=== PATIENT | female | born 2000 | race Caucasian/White ===

== ENCOUNTER 2021-05-02 11:38 | Outpatient (CLI) | payer OTHER, SELFPAY ==
--- NOTE | ~2021-05-02 | MR_ITS ---
EXAMINATION: MR brain/brain stem wo/w con DATE: 05/02/2021 13:09 INDICATION: Papilledema. TECHNIQUE: Magnetic resonance imaging (MRI) of the brain and brainstem was performed without and with 20 cc MultiHance intravenous contrast. Sequences included sagittal and axial T1-weighted SE, axial d iffusion-weighted FS SE, axial T2*-weighted GRE, axial T2-weighted FLAIR Propeller, and axial T2-weig hted Propeller. Apparent diffusion coefficient (ADC) maps were created. COMPARISON: None. FINDINGS: No evidence for acute infarction or intracranial hemorrhage. Cerebellar tonsils extend belo w the foramen magnum 6 mm. Normal olmos-white differentiation. Normal brain parenchymal volume. No ernesto triculomegaly or midline shift. There is a small mucous retention cyst of the left maxillary sinus. N o abnormal contrast enhancement. Flow voids in the major intracerebral arteries are normal. Orbits ar e symmetric without disconjugate gaze. IMPRESSION: 1. No acute intracranial abnormality. 2: Cerebellar tonsils extend below the foramen magnum 6 mm, consistent with Chiari type I malformatio n. Reviewed, dictated and finalized at location B. IMPRESSION: 1. No acute intracranial abnormality. 2: Cerebellar tonsils extend below the foramen magnum 6 mm, consistent with Chi marci type I malformation.
== END 2021-05-02 11:39 | disposition home or self-care (01) ==
LOC: ANHIMG 11:41
PROVIDERS: PCP Nurse Practitioner Family; Visit Provider Family Medicine
DX: H47.10 Unspecified papilledema (principal); R51.9 Headache, unspecified
CPT/HCPCS: 70553; A9577

== ENCOUNTER 2021-05-18 08:49 | Outpatient (CLI) | payer OTHER, SELFPAY ==
--- NOTE | 2021-06-05 09:10 | WPDHOMESLEEP ---
Sleep Study - Home Unattended Date of Study: 05/18/21 Ordering Provider: Beata Aguilar NP Interpreting Provider: Yesika Angel MD Home Sleep Study Type: Watch PAT Height: 1.65 m Weight: 104.3 kg Body Mass Index: 38.2 Neck Circumference (inches): 14.5 Tucker: 12 Reason for Sleep Study Poor memory, irritability, excessive daytime sleepiness Sleep History Natalia Serrano is a 21 year old female with difficulty falling asleep, excessive daytime sleepiness, and difficulty waking. She uses melatonin which helps her to initiate sleep. She does not awaken from sleep feeling short of breath. She rarely awakens at night with heartburn, belching or coughing. She does not know if she snores but nobody complains that she snores loudly. She rarely has trouble sleeping with a cold. She does not wake up gasping for breath at night. She does not have breathing problems at night observed by others. She frequently sweats excessively at night. She does not notice her heart pounding or beating irregularly night. She constantly falls asleep during the day and this occurs involuntarily. She never falls asleep while driving. She does not have loss of muscle tone was strong emotion. She occasionally has daytime difficulties due to excessive sleepiness. She does not feel paralyzed on waking or falling asleep. She does not have vivid dreamlike scenes upon awakening or falling asleep. She does not feel afraid to go to sleep. She rarely has nightmares. She occasionally remembers her dreams. She constantly has racing thoughts. She frequently feels sad and depressed. She constantly has anxiety. She does not have muscular tension or notices parts of her body jerking. She occasionally kicks at night. She does not have crawling or aching feelings in her legs. She rarely has any kind of leg pain at night. She occasionally has morning jaw pain. She occasionally grinds her teeth during sleep. She is not bothered by pain during the day and is not awakened by pain at night. She rarely wakes up feeling stiff the morning. She never wakes up with sore or achy muscles. She rarely wakes up with pain in the neck and spine. She has headaches, depression, memory problems, concentration difficulties,. She take sedatives which are prescribed and melatonin which is [id number]. Normal bedtime is Twelve midnight to 1:00 a.m. falling asleep within 30 minutes if she uses melatonin, longer if she does not use melatonin. She does not wake up during the night. She wakes in the morning between 8:00 a.m. and noon. On the weekends she sleeps later, goes to bed between midnight and 1:00 a.m. and wakes between 10:00 a.m. and 12 noon. She gets at least 8 hours of sleep at night, usually closer to 10 hours of sleep. she takes naps in the afternoon or evening. Sometimes a short nap may be refreshing. She is usually drowsy in the morning for an hour or longer. She feels better in afternoon compared to the morning. Habits: Never smoked tobacco. Caffeine 1 coffee but not daily. No alcohol or recreational drugs. 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
[2021-06-05 09:17] VITALS: BMI 38.2
== END 2021-05-23 12:52 | disposition home or self-care (01) ==
LOC: ANHCSM 08:51
PROVIDERS: PCP Nurse Practitioner Family; Visit Provider Nurse Practitioner Family
DX: G47.10 Hypersomnia, unspecified (principal)
CPT/HCPCS: 95800

== ENCOUNTER 2025-04-13 18:07 | Emergency (ER) | payer OTHER, SELFPAY ==
--- OUTSIDE RECORDS SUMMARY | 2025-04-13 18:10 | XMS_ITS | Clinical Summary ---
Author Organization [facility] Address [address] [place] [address] Care Team Providers Care Anesthesia Director Name Role Phone Lashonda Bennett OD Unavailable [phone] Beata Aguilar NP Unavailable [phone] Jessica Adler MD Unavailable [phone] Anna Tilley OD Unavailable [phone] Dayami Moncada DO Unavailable [phone] Cristin Thornton [facility] Primary Care Provi jacqui Allergies No known active allergies Medications melatonin 5 mg capsule TAKE DIRECTED. 7 Active Drysol 20 % external solution APPLY TO UNDERARMS NIGHTLY 4 Active azelaic acid 15 % gel APPLY TOPICALLY TO FACE IN THE MORNING [address] (CYMBALTA) 60 mg capsuleIndicati ons:Anxiety with Depression,Gene ralized Anxiety Disorder,major depressive disorder Take 1 capsule (60 mg total) by mouth daily Active famotidine (PEPCID) 20 mg tabletIndicatio ns:gastroesopha geal reflux disease Take 1 tablet (20 mg total) by mouth 2 (two) times a day 180 tablet 1 5 01/26/20 26 Active rizatriptan (MAXALT) 10 mg tabletIndicatio ns:Migraine Take 1 tablet (10 mg total) by mouth once as needed for migraine May repeat in 2 hours if unresolved. Do not exceed 30 mg in 24 hours. 27 tablet 11 5 02/24/20 26 Active Active Problems Problem Noted Date Diagnosed Date Migraine without aura and wi thout status migrainosus, not intractable 02/24/2025 Gastroesophageal reflux disease without esophagi tis 01/31/2025 Assessment & Plan (01/31/2025 8:11 PM CDT): Take famotidine 20 mg twice daily as prescribed Coccydynia 01/31/2025 Assessment & Plan (01/31/2025 8:14 PM CDT): When driving long distance road trips, take a break every 2 hours Recommend purchasing a seat cushion Take gxqz-hkg-cldsalh medications for pain as needed Avoid sitting in the same position for prolonged periods of time Try repositioning every few minutes Consider physical therapy Recommend muscle conditioning and strength training Acne vulgaris 01/31/2025 Assessment & Plan (01/31/2025 8:15 PM CDT): Managed by Dermatology Chronic and stable on azelaic acid 15% gel Morbid obesity with BMI of 40.0-44.9, adult 01/10 Assessment & Plan (01/31/2025 8:16 PM CDT): Your BMI is elevated. Try to cut back on calories. Most people should eat between 0144-8275 calories to lose weight. Goal BMI is less than 30. A healthy BMI is considered between 19-25. Decrease your carbohydrate intake to less than 150 grams per day if possible and increase protein to help with hunger. Increase activity to 30 min 4-5 days a week of moderate aerobic activity and add strength training 2 times weekly, as tolerated. Consider using [employer]heen to track diet and exercise habits daily. Consider trying Weight Watcher program to make dietary changes. Visit www.dietaryguidelines.gov, www.myplate.gov, or www.health.gov for more dietary information and tips. If you need further help with weight loss please let me know. I would be happy to help. Start with asking your insurance company what medications they provide coverage for. Check with your insurance to see if they authorize dietitian services with [email or web address] Some medications to ask about include phentermine, Qsymia, Contrave, Xenical, Wegovy, Zepbound. Annual physical exam 01/31/2025 Assessment & Plan (01/31/2025 8:17 PM CDT): Labs ordered Recommend drinking at least 64 oz of water daily Recommend at least 26g fiber daily Recommend at least 150 min of exercise weekly as tolerated Recommend taking daily multivitamin Continue eating a healthy well-balanced diet. Limit processed foods like white starches, fast food, sweets and soda. Increase your vegetable intake and limit red meat. Wear your seatbelt at all times. No texting and driving. Continue to manage your stress in a healthy manner. Follow-up 1 year for annual physical. 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 Pedro for possible IIH in the setting of a Chiari I malformation. She was initially noted to have bilateral optic edema by optometrists Dr. Anna Adam and Dr. Lashonda Bennett, which was followed by an MRI notable for a Chiari I malformation. She has already been seen by Dr. Pedro as well. She states that in March she had headaches every day and currently she has approximately 2-3 non-positional headaches weekly. She has had occasional pulsatile tinnitus but denies TVOs, diplopia, or loss of vision. She denies recent weight gain. She denies any use of doxycycline, tetracycline and minocycline along w/ use of accutane or retinol skin creams/gels. On exam, her VA is 20/20 OU w/ full color vision OU. She does not have an APD and has full motility. Her anterior slit lamp exam is generally unremarkable and her posterior exam is notable for grade 2 disc edema OD and grade 2-3 disc edema OS. Her HVF 24-2 was full other than rare nonspecific misses OS>OD, her OCT ON shows increased average RNFL thickness OS>OD, and her OCT macula shows normal mean ganglion cell complex thickness OU. 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 It appears that it would be OK for her to undergo a lumbar puncture with direct measurement of her OP as per Dr. Pedro's last note, and we will schedule for this to be completed as well. Afterwards, we will plan to initiate treatment w/ diamox. She was given handouts on both papilledema and IIH. She was also counseled on the importance of weight loss and is planning on meeting with a cardroom plastic card grader as well to better aid her efforts in weight loss. Anxiety 02/21/2017 01/31/2025 Depressed mood 01/26/2016 01/31/2025 Encounters Date Type Department Care Team Description 02/23/2025 1:30 PM CDT Office Visit [facility] General Neurology [address] 6th [place] [address] [place] [address] Colby Duran MD PhD Migraine without aura and without status migrainosus, not intractable (Primary Dx); Chiari I malformation (HCC) 01/28/2025 Results Follow-Up [facility] Medicine [address] [place] [address] [address] [place] [id number] Cristin Thornton DNP CBC with auto differential, Comprehensive metabolic panel, Hemoglobin A1c, Additional followed-up results: 5 01/25/2025 12:30 PM CDT Office Visit [facility] Medicine [address] [place] [address] [address] [place] [address] Cristin Thornton DNP Annual physical exam (Primary Dx); Encounter to establish care; Coccydynia; Chiari I malformation (HCC); Gastroesophageal reflux disease without esophagitis; SANGEETA (generalized anxiety disorder); Mild episode of recurrent major depressive disorder; Acne vulgaris; History of idiopathic intracranial hypertension; Morbid obesity with BMI of 40.0-44.9, adult (HCC); Screening for diabetes mellitus; Lipid screening; Thyroid disorder screen; Encounter for vitamin deficiency screening; Encounter for long-term (current) use of medications from Last 3 Months Immunizations Immunization Administration Dates Next Due Hep B, Unspecified 2001 Influenza, Quadrivalent, Spl it, Preservative Free, Intramuscular 10/27/2020,01/11/2020 Influenza, Unspecified 08/11/2024 Pfizer SARS-CoV-2 Monovalent Vaccination (12+ Yrs) PURPLE 03/02/2021,02/06/2021 Surgical History Surgery Date Site/Laterality Comments ADENOIDECTOMY 11/11/2007 - 11/10/2008 TYMPANOSTOMY TUBE PLACEMENT 2003,2007 LUMBAR PUNCTURE WO INJECTION , THERAPEUTIC 07/12/2021 N/A Medical History Medical History Date Comments Depression Myopia of both eyes Left nasal polyps Idiopathic intracranial hypertension 07/12/2021 Chiari I malformation (HCC) 05/02/2021 Family History Medical History Relation Name Comments Diabetes Father Hypertension Father Asthma Mother Kidney disease Mother Thyroid disease Mother Uterine cancer Other MGrandmother twin Heart disease Paternal Grandfather Hypertension Paternal Grandfather Stroke Paternal Grandfather Polycystic ovary syndrome Sister Strabismus Sister Breast cancer Neg Hx Ovarian cancer Neg Hx Relation Name Status Comments Father Mother Other MGrandmother twin Alive maternal g randmother's twin sister Paternal Grandfather Sister Social History Tobacco Use Types Packs/Day Years Used Date Smoking Tobacco: Never Smokeless Tobacco: Never Tobacco Cessation:Counseling Given: Not Answered AUDIT-C Answer Date Recorded Q1: How often do you have a drink containing alc ohol? 2-4 times a month 01/25/2025 Q2: How many drinks containi ng alcohol do you have on a typical day when you are drinking? 1 or 2 01/25/2025 Q3: How often do you have si x or more drinks on one occasion? 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 Gender Identity Not on file Sexual Orientation Not on file Obstetrics History Para Term AB IAB SAB Ectopic Multiple Livin g Live Births 0 0 0 0 0 0 0 0 0 0 0 Comments 13/0/0 Last Filed Vital Signs Vital Sign Reading Time Taken Comments Blood Pressure 102/67 02/23/2025 1:39 PM CDT Pulse 87 02/23/2025 1:39 PM CDT Temperature 36.3 C (97.3 F) 06/17/2024 4:35 PM CDT Respiratory Rate 18 01/25/2025 12:39 PM CDT Oxygen Saturation 98% 01/25/2025 12:39 PM CDT Inhaled Oxygen Concentration - - Weight 116.6 kg (257 lb) 02/23/2025 1:39 PM CDT Height 165.1 cm (5' 5) 02/23/2025 1:39 PM CDT Body Mass Index 42.77 02/23/2025 1:39 PM CDT Plan of Treatment Health Maintenance Due Date Last Done Comments Chlamydia and Gonorrhea (GC/CT) Screening 2001 Hepatitis C Screening 2001 DTaP/Tdap/Td Vaccine (1 - Tdap) 02/13/2012 Varicella Vaccines (1 of 2 - 13+ 2-dose series) 2014 HPV Vaccines (1 - 3-dose series) 02/13/2016 Covid-19 Vaccine ( - 2023- season) 2024 03/02/2021, 02/06/2021 Cervical Cancer Screening 08/03/2025 08/03/2024 Depression Screening 01/25/2026 01/25/2025, 01/16/2021, 01/16/2021, Additional history exists Regular Well Visit/Exam 18-64 01/25/2026 01/25/2025, 08/03/2024 Hepatitis B Screening Completed 2001 Influenza Vaccine Completed 08/11/2024, , 01/11/2020 Pneumococcal vaccine <65 Aged Out No longer eligible based on patient's age to complete this topic Procedures Procedure Name Priority Date/Time Associated Diagnosis Comments VITAMIN D 25 HYDROXY Routine 01/27/2025 12:30 PM CDT Encounter for vitamin deficiency screening Encounter for long-term (current) use of medications Annual physical exam THYROID FUNCTION CASCADE Routine 01/27/2025 12:30 PM CDT Thyroid disorder screen Encounter for long-term (current) use of medications Annual physical exam LIPID PANEL Routine 01/27/2025 12:30 PM CDT Lipid screening Encounter for long-term (current) use of medications Annual physical exam HEMOGLOBIN A1C Routine 01/27/2025 12:30 PM CDT Screening for diabetes mellitus Encounter for long-term (current) use of medications Annual physical exam COMPREHENSIVE METABOLIC PANEL Routine 01/27/2025 12:30 PM CDT Screening for diabetes mellitus Encounter for long-term (current) use of medications Annual physical exam CBC WITH AUTO DIFFERENTIAL Routine 01/27/2025 12:30 PM CDT Encounter for long-term (current) use of medications Annual physical exam URINE CULTURE Routine 01/27/2025 12:30 PM CDT REFLEXIVE URINE CULTURE Routine 01/27/2025 12:30 PM CDT URINALYSIS AND REFLEX TO MICROSCOPIC AND CULTURE Routine 01/27/2025 12:30 PM CDT Encounter for long-term (current) use of medications Annual physical exam PAP WITH REFLEX TO HIGH RISK HPV Routine 08/03/2024 2:57 PM CDT Well woman exam with routine gynecological exam from Last 3 Months or Most Recently Relevant to Health Maintenance Results * REFLEXIVE URINE CULTURE (01/27/2025 12:30 PM CDT) [facility]rine culture [email or web address] Comment:CULTURE INDICATED - RESULTS TO FOLLOW 01/27/2025 12:3 0 PM CDT 01/27/2025 12:31 PM CDT Narrative [facility] - 01/28/2025 9:39 PM CDT FASTING:YES FASTING: YES Cristin Thornton [facility] MICROBIOLOGY - GENERAL ORDERABLES Final Result [facility] [address] [place] [address] * Thyroid Function [place] (01/27/2025 12:30 PM CDT) Pathologist [facility] TSH 2.51 mIU/L [facility] Comment: Reference Range > or = 20 Years 0.40-4.50 Ranges First trimester 0.26-2.66 Second trimester 0.55-2.73 Third trimester 0.43-2.91 Blood 01/27/2025 12:3 0 PM CDT 01/27/2025 12:31 PM CDT Narrative [facility] - 01/28/2025 9:39 PM CDT FASTING:YES FASTING: YES Cristin Thornton [facility] BLOOD ORDERABLE S Final Result Performing Organization Address [facility] Co de Phone Number [facility] [address] [place] [address] * (ABNORMAL) Urinalysis reflex to microscopic and culture Urine, clean voided (01/27/2025 12:30 PM CDT) Color, ur YELLOW YELLOW [facility] Appearance, ur CLEAR CLEAR [facility] Specific gravity 1.028 1.001 - 1.035 [facility] pH, ur 6.5 5.0 - 8.0 [facility] Glucose, ur NEGATIVE NEGATIVE [facility] Bilirubin, ur NEGATIVE NEGATIVE [facility] Ketones, ur NEGATIVE NEGATIVE [facility] Blood, ur NEGATIVE NEGATIVE [facility] Protein, ur, quant NEGATIVE NEGATIVE [facility] Nitrites, ur NEGATIVE NEGATIVE [facility] Leukocyte esterase, ur TRACE(A) NEGATIVE [facility] WBC, ur NONE SEEN < OR = 5 /HPF [facility] RBC, ur NONE SEEN < OR = 2 /HPF [facility] Epithelial cells, squamous, ur 6-10(A) < OR = 5 /HPF [facility] Bacteria, ur, quant FEW(A) NONE SEEN /HPF [facility] Hyaline cast 0-5(A) NONE SEEN /LPF [facility] Note [facility] Comment: This urine was analyzed for the presence of WBC, RBC, bacteria, casts, and other formed elements. Only those elements seen were reported. Urine, clean voided 01/27/2025 12:30 PM CDT 01/27/2025 12:31 PM CDT Narrative [facility] - 01/28/2025 9:39 PM CDT FASTING:YES FASTING: YES Cristin Thornton [facility] MICROBIOLOGY - GENERAL ORDERABLES Final Result [facility] [address] [place] [address] * CBC with auto differential (01/27/2025 12:30 PM CDT) WBC 6.2 3.8 - 10.8 Thousand/u L [facility] RBC, POC 4.87 3.80 - 5.10 Million/uL [facility] Hgb 14.7 11.7 - 15.5 g/dL [facility] Hct 44.2 35.0 - 45.0 % [facility] MCV 90.8 80.0 - 100.0 fL [facility] MCH 30.2 27.0 - 33.0 pg [facility] MCHC 33.3 32.0 - 36.0 g/dL [facility] Comment: For adults, a slight decrease in the calculated MCHC value (in the range of 30 to 32 g/dL) is most likely not clinically significant; however, it should be interpreted with caution in correlation with other red cell parameters and the patient's clinical condition. Rdw 12.6 11.0 - 15.0 % [facility] Platelets 285 140 - 400 Thousand/u L [facility] MPV 10.7 7.5 - 12.5 fL [facility] Neutrophils, abs 3,726 1,500 - 7,800 cells/uL [facility] Lymphocytes, abs 2,139 850 - 3,900 cells/uL [facility] Monocyte abs 223 200 - 950 cells/uL [facility] Eosinophils, abs 81 15 - 500 cells/uL [facility] Basophils, abs 31 0 - 200 cells/uL [facility] Neutrophils 60.1 % [facility] Lymphocyte pct 34.5 % [facility] Monocytes 3.6 % [facility] Eosinophils 1.3 % [facility] Basophils 0.5 % [facility] Blood 01/27/2025 12:3 0 PM CDT 01/27/2025 12:31 PM CDT Narrative [facility] - 01/28/2025 9:39 PM CDT FASTING:YES FASTING: YES us Cristin Thornton [facility] BLOOD ORDERABLE S Final Result [facility] [address] [place] [address] * (ABNORMAL) Vitamin D 25 hydroxy (01/27/2025 12:30 PM CDT) Pathologist [facility] Vitamin D 25-OH 28(L) 30 - 100 ng/mL [facility] Comment: Vitamin D Status 25-OH Vitamin D: Deficiency: <20 ng/mL Insufficiency: 20 - 29 ng/mL Optimal: > or = 30 ng/mL For 25-OH Vitamin D testing on patients on D2-supplementation and patients for whom quantitation of D2 and D3 fractions is required, the QuestAssureD(TM) 25-OH VIT D, (D2,D3), LC/MS/MS is recommended: order code 15951 (patients >2yrs). See Note 1 Note 1 For additional information, please refer to http://education.LineMetrics/faq/WEC472 (This link is being provided for informational/ educational purposes only.) Blood 01/27/2025 12:3 0 PM CDT 01/27/2025 12:31 PM CDT Narrative [facility] - 01/28/2025 9:39 PM CDT FASTING:YES FASTING: YES Cristin Thornton [facility] BLOOD ORDERABLE S Final Result Performing Organization Address [facility] Co de Phone Number [facility] [address] [place] [address] * Urine culture (01/27/2025 12:30 PM CDT) Urine culture [email or web address] Comment: CULTURE, URINE, ROUTINE Micro Number: [id number] Test Status: Final Specimen Source: Urine Specimen Quality: Adequate Result: No Growth 01/27/2025 12:3 0 PM CDT 01/27/2025 12:31 PM CDT Narrative [facility] - 01/28/2025 9:39 PM CDT FASTING:YES FASTING: YES Cristin Thornton [facility] MICROBIOLOGY - GENERAL ORDERABLES Final Result Performing Organization Address [facility] de Phone Number [facility] [address] [place] [address] * Hemoglobin A1c (01/27/2025 12:30 PM CDT) Hgb A1C 5.5 <5.7 % of total Hgb [email or web address] Comment: For the purpose of screening for the presence of diabetes: <5.7% Consistent with the absence of diabetes 5.7-6.4% Consistent with increased risk for diabetes (prediabetes) > or =6.5% Consistent with diabetes This assay result is consistent with a decreased risk of diabetes. Currently, no consensus exists regarding use of hemoglobin A1c for diagnosis of diabetes in children. According to [place] Diabetes Association (ADA) guidelines, hemoglobin A1c <7.0% represents optimal control in non- diabetic patients. Different metrics may apply to specific patient populations. Standards of Medical Care in Diabetes(ADA). Blood 01/27/2025 12:3 0 PM CDT 01/27/2025 12:31 PM CDT Narrative [facility] - 01/28/2025 9:39 PM CDT FASTING:YES FASTING: YES Cristin Thornton [facility] BLOOD ORDERABLE S Final Result [facility] [address] [place] [address] * (ABNORMAL) Lipid panel (01/27/2025 12:30 PM CDT) Cholesterol 202(H) <200 mg/dL [facility] HDL 48(L) > OR = 50 mg/dL [facility] Triglycerides 52 <150 mg/dL [facility] LDL 140(H) mg/dL (calc) [facility] Comment: Reference range: <100 Desirable range <100 mg/dL for primary prevention; <70 mg/dL for patients with CHD or diabetic patients with > or = 2 CHD risk factors. LDL-C is now calculated using the Juanito-Anny calculation, which is a validated novel method providing better accuracy than the Friedewald equation in the estimation of LDL-C. Juanito SS et al. GENARO. 2013;310(19): 3123-0357 (http://education.LineMetrics/faq/QAR766) Chol/HDL ratio 4.2 <5.0 (calc) [facility] Non-HDL, (LDL+VLDL) 154(H) <130 mg/dL (calc) [facility] Comment: For patients with diabetes plus 1 major ASCVD risk factor, treating to a non-HDL-C goal of <100 mg/dL (LDL-C of <70 mg/dL) is considered a therapeutic option. Blood 01/27/2025 12:3 0 PM CDT 01/27/2025 12:31 PM CDT Narrative [facility] - 01/28/2025 9:39 PM CDT FASTING:YES FASTING: YES Cristin Thornton [facility] BLOOD ORDERABLE S Final Result [facility] [address] [place] [address] * (ABNORMAL) Comprehensive metabolic panel (01/27/2025 12:30 PM CDT) Glucose 101(H) 65 - 99 mg/dL [facility] Comment: Fasting reference interval For someone without known diabetes, a glucose value between 100 and 125 mg/dL is consistent with prediabetes and should be confirmed with a follow-up test. BUN 15 7 - 25 mg/dL [facility] Creatinine 0.60 0.50 - 0.96 mg/dL [facility] eGFR 129 > OR = 60 mL/min/1.7 3m2 [facility] BUN/creat ratio SEE NOTE: 6 - 22 (calc) [facility] Comment: Not Reported: BUN and Creatinine are within reference range. Sodium 141 135 - 146 mmol/L [facility] Potassium, pl 4.1 3.5 - 5.3 mmol/L [facility] Chloride 106 98 - 110 mmol/L [facility] CO2 29 20 - 32 mmol/L [facility] Calcium 9.1 8.6 - 10.2 mg/dL [facility] Protein, sr 6.9 6.1 - 8.1 g/dL [facility] Albumin 4.2 3.6 - 5.1 g/dL [facility] GLOBULIN 2.7 1.9 - 3.7 g/dL (calc) [facility] Alb/glob ratio 1.6 1.0 - 2.5 (calc) [facility] Bilirubin, total 0.7 0.2 - 1.2 mg/dL [facility] Alk phos 46 31 - 125 U/L [facility] AST 14 10 - 30 U/L [facility] ALT (SGPT) 16 6 - 29 U/L [facility] Blood 01/27/2025 12:3 0 PM CDT 01/27/2025 12:31 PM CDT Narrative [facility] - 01/28/2025 9:39 PM CDT FASTING:YES FASTING: YES us Cristin Thornton [facility] BLOOD ORDERABLE S Final Result [facility] [address] [place] [phone] * Pap with reflex to High Risk HPV and Genotyping (Cytology Component) (08/03/2024 2:57 PM CDT) Thin prep (Pap test) 08/03/2024 2:57 PM CDT 08/04/2024 5:56 PM [address]ative PATHOLOGY [facility] - 08/10/2024 1:59 PM CDT EPIC results best viewed via link to PDF [facility] [place] [address] Note to Patients: This report may contain a detailed description of human tissue sent by a health care provider to the laboratory for pathologic evaluation. The content of this report is essential for diagnosis and may provide important critical findings. This information may be unfamiliar to patients to review without a medical professional present. It is advised that the patient review this report in the presence of a health care provider who can answer questions and explain the details. CYTOPATHOLOGY REPORT FINAL Patient Name: ABIODUN NOEL Gender: F : 2000 (Age: 24) Address: [address] [place], [place] [address] Hospital #: [id number] Service: DEFAULT Location: Patient Type: [facility] SPECIMEN Taken: 08/03/2024 Received: 08/04/2024 Accessioned: 08/04/2024 Reported: 08/10/2024 Physician(s): Anna Courtney M.D. FINAL INTERPRETATION SOURCE OF SPECIMEN Liquid based Thin Prep pap with Reflex HPV: STATEMENT OF ADEQUACY - Satisfactory for evaluation - Endocervical cells/transformation zone sample absent GENERAL CATEGORIZATION: - Negative for squamous intraepithelial lesion or malignancy 08/10/2024 13:59 CORNELL Diggs(ASCP) Report Electronically Reviewed and Signed Out By CORNELL Diggs(ASCP) 08/10/2024 13:59:56 Cervicovaginal Cytology (Pap Test) Disclaimer: The Pap test is a screening test used to detect cervical cancer and its precursors; it is not a diagnostic procedure. False negative and false positive results do occur. Pap test results should be interpreted in the context of pertinent clinical information and biopsy results as indicated. [facility] Clinical Laboratory Improvement Amendments (CLIA) mandate that cytologic and histologic results be correlated for laboratory quality assurance advisor & improvement standards. FOR ALL HIGH-GRADE CASES we request submission of follow-up histological material and/or reports that have not been previously provided so that we may fulfill said required standards. Gross Description A. Liquid based Thin Prep pap with Reflex HPV: Cervical/vaginal - Screening ThinPrep Clinical Diagnosis and History Last Menstrual Period: 07/20/24 The patient is a 24 year old woman with screening. Report Images and scanned documents, if included only viewable in PDF version The performance characteristics of some immunohistochemical stains, in-situ hybridization and fluorescence in-situ hybridization tests and immunophenotyping by flow cytometry cited in this report (if any) were determined by the Surgical Pathology Department at [facility] as part of an ongoing quality assurance manager program and in compliance with federally mandated regulations drawn from the Clinical Laboratory Improvement Act of 1988 (CLIA '88). Some of these tests rely on the use of analyte specific reagents and are subject to specific labeling requirements by the US Food and Drug Administration. Such diagnostic tests may only be performed in a facility that is certified by the Department of Health and Human Services as a high complexity laboratory under CLIA '88. The FDA has determined that such clearance or approval is not necessary. This test is used for clinical purposes. It should not be regarded as investigational or for research. Nevertheless, federal rules concerning the medical use of analyte specific reagents require that the following disclaimer be attached to the report: This test was developed and its performance characteristics determined by the Surgical Pathology Department of [facility]. It has not been cleared or approved by the U. S. Food and Drug Administration. Anna Courtney MD LAB CYTOLOGY ORDERABLES F inal Result PATHOLOGY [facility] from Last 3 Months or Most Recently Relevant to Health Maintenance Insurance [facility] [employer] [employer] OPEN ACCESS [facility] [place] [address] Care Teams Anesthesia Director Relationship Specialty Start Date End Date Cristin Thornton DNP [address] [place] [address] PCP - General Family Medicine 01/25/25 Lashonda Bennett, OD [address] [place] [address] Primary Eye Care Provider Optometry 07/03/21 Beata Aguilar, GUTSABO [address] [place] [address] Nurse Practitioner Family Medicine 07/03/21 Jessica Adler MD [address] [place] [address] Neurologist Neurology 09/24/23 Anna Tilley, OD [address] [place] [address] Primary Eye Care Provider Optometry 09/24/23 Dayami Moncada DO [address] [place] [address] Referring Physician Internal Medicine 02/07/24
--- OUTSIDE RECORDS SUMMARY | 2025-04-13 18:10 | XMS_ITS | Referral Summary ---
Author Organization [facility] Address [address] [place] [address] Care Team Providers Care Rework Operator Name Role Phone Lashonda Bennett OD Unavailable Beata Aguilar TROUBLE CLERK Unavailable [phone] Jessica Adler MD Unavailable [phone] Anna Tilley OD Unavailable Antwan Dayami Chapis DO Unavailable [phone] Cristin Thornton DNP Primary Care Provi jacqui Encounters Date Type Department Care Team Description 02/23/2025 1:30 PM CDT Office Visit [facility] General Neurology [address] 6th [place] [address] [place] [address] Colby Duran MD PhD Migraine without aura and without status migrainosus, not intractable (Primary Dx); Chiari I malformation (HCC) 01/28/2025 Results Follow-Up [address] [place] [id number] Cristin Thornton DNP CBC with auto differential, Comprehensive metabolic panel, Hemoglobin A1c, Additional followed-up results: 5 01/25/2025 12:30 PM CDT Office Visit [address] [place] [phone] Cristin Thornton DNP Annual physical exam (Primary [...] use of medications from Last 3 Months Allergies No known active allergies Medications melatonin [...] hours Recommend purchasing a seat cushion Take etxr-vwt-ivqtdar medications for pain as needed Avoid sitting [...] on calories. Most people should eat between 3200-5750 calories to lose weight. Goal BMI is less than 30. A healthy BMI is considered between 19-25. Decrease your carbohydrate intake to less than 150 grams per day if possible and increase protein to help with hunger. Increase activity to 30 min 4-5 days a week of moderate aerobic activity and add strength training 2 times weekly, as tolerated. Consider using [employer] shaheen to track diet and exercise habits [...] see if they authorize dietitian services with [email or web address] Some medications to ask about include phentermine, [...] and is planning on meeting with a supervisor special services as well to better aid her efforts in weight loss. 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 Gender Identity Not on file Sexual Orientation Not on file Last Filed Vital Signs Vital Sign Reading [...] 02/23/2025 1:39 PM CDT Plan of Treatment Not on file Procedures Procedure Name Priority Date/Time Associated Diagnosis [...] CULTURE (01/27/2025 12:30 PM CDT) Urine culture [facility] Comment:CULTURE INDICATED - RESULTS TO FOLLOW 01/27/2025 12:3 0 PM CDT 01/27/2025 12:31 PM CDT Narrative [facility] - 01/28/2025 9:39 PM CDT FASTING:YES FASTING: YES Cristin Thornton [facility] LAB MICROBIOLOGY - GENERAL ORDERABLES Final Result [facility] [address] [place] [address] * Thyroid Function [place] (01/27/2025 12:30 PM CDT) Pathologist [facility] TSH 2.51 mIU/L [facility] Comment: Reference Range > or = 20 Years 0.40-4.50 Ranges First trimester 0.26-2.66 Second trimester 0.55-2.73 Third trimester 0.43-2.91 Blood 01/27/2025 12:3 0 PM CDT 01/27/2025 12:31 PM CDT Narrative [facility] - 01/28/2025 9:39 PM CDT FASTING:YES FASTING: YES Cristin Thornton [facility] LAB BLOOD ORDERABLE S Final Result [facility] [address] [place] [address] * (ABNORMAL) Urinalysis reflex to microscopic and culture Urine, clean voided (01/27/2025 12:30 PM CDT) Pathologist [facility] Color, ur YELLOW YELLOW [facility] Appearance, ur CLEAR CLEAR [facility] Specific gravity 1.028 1.001 - 1.035 [facility] pH, ur 6.5 5.0 - 8.0 [facility] Glucose, ur NEGATIVE NEGATIVE [facility] Bilirubin, ur NEGATIVE NEGATIVE [facility] Ketones, ur NEGATIVE NEGATIVE [facility] Blood, ur NEGATIVE NEGATIVE [facility] Protein, ur, quant NEGATIVE NEGATIVE [facility] Nitrites, ur NEGATIVE NEGATIVE [facility] Leukocyte esterase, ur TRACE(A) NEGATIVE [facility] WBC, ur NONE SEEN < OR = 5 /HPF [facility] RBC, ur NONE SEEN < OR = 2 /HPF [facility] Epithelial cells, squamous, ur 6-10(A) < OR = 5 /HPF [facility] Bacteria, ur, quant FEW(A) NONE SEEN /HPF [facility] Hyaline cast 0-5(A) NONE SEEN /LPF [facility] Note [facility] Comment: This urine was analyzed for the presence of WBC, RBC, bacteria, casts, and other formed elements. Only those elements seen were reported. Urine, clean voided 01/27/2025 12:30 PM CDT 01/27/2025 12:31 PM CDT Narrative [facility] - 01/28/2025 9:39 PM CDT FASTING:YES FASTING: YES us Cristin Thornton [facility] LAB MICROBIOLOGY - GENERAL ORDERABLES Final Result [facility] [address] [place] [address] * CBC with auto differential (01/27/2025 12:30 [...] CDT FASTING:YES FASTING: YES us Cristin Thornton [facility] LAB BLOOD ORDERABLE S Final Result [facility] [address] [place] [address] * (ABNORMAL) Vitamin D 25 hydroxy (01/27/2025 12:30 PM CDT) Pathologist [facility] Vitamin D 25-OH 28(L) 30 - 100 [...] D, (D2,D3), LC/MS/MS is recommended: order code 67077 (patients >2yrs). See Note 1 Note 1 For additional information, please refer to http://education.Bourbon & Boots/faq/PTF919 (This link is being provided for informational/ educational purposes only.) Blood 01/27/2025 12:3 0 PM CDT 01/27/2025 12:31 PM CDT Narrative [facility] - 01/28/2025 9:39 PM CDT FASTING:YES FASTING: YES Cristin Thornton [facility] LAB BLOOD ORDERABLE S Final Result Performing Organization Address City/[facility]/ZIP Co de Phone Number [email or web address] [address] [place] [address] * Urine culture (01/27/2025 12:30 PM CDT) Urine culture [facility] Comment: CULTURE, URINE, ROUTINE Micro Number: [id number] Test Status: Final Specimen Source: Urine Specimen Quality: Adequate Result: No Growth 01/27/2025 12:3 0 PM CDT 01/27/2025 12:31 PM CDT Narrative [facility] - 01/28/2025 9:39 PM CDT FASTING:YES FASTING: YES Cristin Thornton [facility] LAB MICROBIOLOGY - GENERAL ORDERABLES Final Result [email or web address] [address] [place] [address] * Hemoglobin A1c (01/27/2025 12:30 PM CDT) Hgb A1C 5.5 <5.7 % of total Hgb [facility] Comment: For the purpose of screening for the presence of diabetes: <5.7% Consistent with the absence of diabetes 5.7-6.4% Consistent with increased risk for diabetes (prediabetes) > or =6.5% Consistent with diabetes This assay result is consistent with a decreased risk of diabetes. Currently, no consensus exists regarding use of hemoglobin A1c for diagnosis of diabetes in children. According to [place] Diabetes Association (ADA) guidelines, hemoglobin A1c <7.0% represents optimal control in non- diabetic patients. Different metrics may apply to specific patient populations. Standards of Medical Care in Diabetes(ADA). Blood 01/27/2025 12:3 0 PM CDT 01/27/2025 12:31 PM CDT Narrative [facility] - 01/28/2025 9:39 PM CDT FASTING:YES FASTING: YES us Cristin Nguyentead DNP LAB BLOOD ORDERABLE S Final Result [email or web address] [address] [place] [address] * (ABNORMAL) Lipid panel (01/27/2025 12:30 PM [...] equation in the estimation of LDL-C. Juanito ANGULO et al. GENARO. 2013;310(19): 2521-3904 (http://education.Uvinum.Shutl/faq/YML798) Chol/HDL ratio 4.2 <5.0 (calc) [facility] [...] CDT FASTING:YES FASTING: YES us Cristin Thornton DNP LAB BLOOD ORDERABLE S Final Result [facility] [address] [address] * (ABNORMAL) Comprehensive metabolic panel (01/27/2025 12:30 PM CDT) [facility] Glucose 101(H) 65 - 99 mg/dL [facility] [...] PM CDT FASTING:YES FASTING: YES us Cristin Deweyjignesh Thornton [facility] LAB BLOOD ORDERABLE S Final Result [facility] [address] [place] [address] * Pap with reflex to High Risk HPV and Genotyping (Cytology Component) (08/03/2024 2:57 PM CDT) Thin prep (Pap test) 08/03/2024 2:57 PM CDT 08/04/2024 5:56 PM CDT Narrative PATHOLOGY [facility] - 08/10/2024 1:59 PM CDT EPIC results best viewed via link to PDF [facility] Nydia O[facility] [place] [address] Note to Patients: This report may contain [...] Gender: F : 2000 (Age: 24) Address: [address] [place] [id number] Hospital #: [id number] Service: DEFAULT Location: Patient Type: E SPECIMEN Taken: 08/03/2024 Received: 08/04/2024 Accessioned: 08/04/2024 Reported: 08/10/2024 Physician(s): Anna Courtney M.D. FINAL INTERPRETATION SOURCE OF SPECIMEN Liquid based Thin Prep pap with Reflex HPV: STATEMENT OF ADEQUACY - Satisfactory for evaluation - Endocervical cells/transformation zone sample absent GENERAL CATEGORIZATION: - Negative for squamous intraepithelial lesion or malignancy nohemy/08/10/2024 13:59 CORNELL Diggs(ASCP) Report Electronically Reviewed and [...] clinical information and biopsy results as indicated. [facility] Clinical Laboratory Improvement Amendments (CLIA) mandate that cytologic and histologic results be correlated for laboratory air quality engineer & improvement standards. FOR ALL HIGH-GRADE CASES [...] determined by the Surgical Pathology Department at [facility] as part of an ongoing software quality specialist program and in compliance with federally mandated [...] determined by the Surgical Pathology Department of [facility]. It has not been cleared or approved by the U. S. Food and Drug Administration. Anna Courtney MD LAB CYTOLOGY ORDERABLES F inal Result [facility] from Last 3 Months or Most Recently Relevant to Health Maintenance Insurance [facility] Address: [id number] [place] [address] [facility] H[facility]/PPO Address: [address] [address] [place] [address] [employer]IG[employer] OPEN ACCESS [facility] HMO/PPO Address: [address] [place] [address] [facility]US [facility] H[facility]/PPO Address: [address] [address] [place] [address] Care Teams Rework Operator Relationship Specialty Start Date End Date Cristin Thornton DNP [address] [place] [address] PCP - General Family Medicine 01/25/25 Lashonda Bennett OD [address] [place] [address] Primary Eye Care Provider Optometry 07/03/21 Beata Aguilar NP [address] [place] [address] Nurse Practitioner Family Medicine 07/03/21 Jessica Adler MD [address] [place] [address] Neurologist Neurology 09/24/23 Anna Tilley, YASMANY [address] [place] [address] Primary Eye Care Provider Optometry 09/24/23 Dayami Moncada DO [address] [place] [address] Referring Physician Internal Medicine 02/07/24
--- OUTSIDE RECORDS SUMMARY | 2025-04-13 18:11 | XMS_ITS | Encounter Summary ---
Author Organization [facility] Address 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
--- OUTSIDE RECORDS SUMMARY | 2025-04-13 18:11 | XMS_ITS | Encounter Summary ---
Author Organization [facility] Address 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
--- OUTSIDE RECORDS SUMMARY | 2025-04-13 18:11 | XMS_ITS | Encounter Summary ---
Author Organization [facility] Address 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
--- OUTSIDE RECORDS SUMMARY | 2025-04-13 18:11 | XMS_ITS | Clinical Summary ---
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
[2025-04-13 18:17] VITALS: BP 129/69; PULSE 94; RESP 16; TEMP 36.6; O2SAT 100
--- NOTE | 2025-04-13 18:32 | ED.GENADULT ---
HPI - General Adult General Chief complaint: Ear Stated complaint: Ear Pain Source: patient Mode of arrival: ambulatory Limitations: no limitations History of Present Illness HPI narrative: Patient presents for evaluation of right-sided ear pain. Symptom onset yesterday. She denies any fever, chills, cough, sore throat, hearing loss, tinnitus or drainage from the ear. She has not been swimming as late. Does not smoke. Related Data Home Medications ?Medication ?Instructions ?Recorded ?Confirmed ?Last Taken ?Type acetazolamide 500 mg 500 mg PO DAILY 02/12/22 Unknown History capsule,extended release duloxetine 60 mg capsule,delayed mg PO 04/13/25 Unknown History release rizatriptan 10 mg tablet mg 04/13/25 Unknown History Allergies Allergy/AdvReac Type Severity Reaction Status Date / Time No Known Allergies Allergy Verified 04/13/25 18:17 Review of Systems Review of Systems: CONSTITUTIONAL: Denies fever, chills, or sweats. EYES: Denies visual changes, redness, or discharge. ENT:Reports right ear pain. Denies rhinorrhea, congestion, or sore throat CARDIOVASCULAR: Denies chest pain, palpitations, or edema. RESPIRATORY: Denies cough or dyspnea. GASTROINTESTINAL: Denies abdominal pain, nausea, vomiting, or diarrhea. GENITOURINARY: Denies dysuria or hematuria. SKIN: Denies rash or itching. MUSCULOSKELETAL: Denies back pain, joint pain, or myalgia. NEUROLOGIC: Denies headache, numbness, dizziness, or weakness. PSYCHIATRIC: Denies anxiety or depression. FOR[facility]LY [facility] Past Medical History Medical History BMI 36.0-36.9,adult Mixed hyperlipidemia total cholesterol 180, HDL 48, triglycerides 50, LDL 122 on 02/03/2022. Fatigue TSH normal at 4.29 With normal hemoglobin 14.3, vitamin B12 of 401, folic acid 12.9 on 02/03/2022. BMI 35.0-35.9,adult Physical deconditioning Vitamin D deficiency Level low at 23.1 on 02/03/2022. 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 on eye exam on 04/26/2021 with history of headaches Hypersomnia Headache Left nasal polyps Encounter to establish care Depression BMI 38.0-38.9,adult Anxiety Surgical History Surgical History Hx of adenoidectomy 2008 History of placement of ear tubes Family History Family History Father Diabetes mellitus Hypertension Mother Asthma Depression Thyroid disease Sibling PCOS (polycystic ovarian syndrome) Grandparent Depression Grandparent Depression Heart disease Social History Social History Smoking status: Never smoker Alcohol intake: never Substance use: never Substance use type: does not use Exam Narrative: GENERAL: Well-appearing, well-nourished, and in no acute distress. HEAD: Normocephalic, atraumatic. EYES: PERRLA and EOMI. ENT: Nares clear, no rhinorrhea or epistaxis. Mucous membranes moist. Oropharynx without tonsillar hypertrophy exudate or other lesions. Right tympanic membrane is bulging and erythematous NECK: Supple. No adenopathy or masses. No carotid bruits or JVD CHEST: Clear to auscultation. No respiratory distress. No wheezes rales or rhonchi HEART: Regular rate and rhythm. No murmur heard. Normal peripheral pulses. ABDOMEN: Soft, nontender, nondistended, normal active bowel sounds. EXTREMITIES: Normal range of motion. No edema. SKIN: Warm, dry, no rash. NEURO: No focal deficits. Alert and oriented x3. PSYCH: Normal mood and affect. Course Course Emergency Course: This is a 25-year-old female who presented for evaluation of right ear pain. She has evidence of otitis media on exam. Will discharge with Augmentin. Follow-up with primary provider. Go to the ER for worsening symptoms. Patient in agreement with plan care. Level of Care: Express Care Visit Vital Signs Vital signs: Vital Signs Temperature 36.6 C 04/13/25 18:17 Pulse Rate 94 04/13/25 18:17 Respiratory Rate 16 04/13/25 18:17 Blood Pressure 129/69 04/13/25 18:17 Pulse Oximetry 100 04/13/25 18:17 Oxygen Delivery Room Air 04/13/25 18:17 Temperature 36.6 C 04/13/25 18:17 Pulse Rate 94 04/13/25 18:17 Respiratory Rate 16 04/13/25 18:17 Blood Pressure 129/69 04/13/25 18:17 Pulse Oximetry 100 04/13/25 18:17 Oxygen Delivery Room Air 04/13/25 18:17 Medical Decision Making Vital Signs Vital Signs: Vital Signs Temperature 36.6 C 04/13/25 18:17 Pulse Rate 94 04/13/25 18:17 Respiratory Rate 16 04/13/25 18:17 Blood Pressure 129/69 04/13/25 18:17 Pulse Oximetry 100 04/13/25 18:17 Oxygen Delivery Room Air 04/13/25 18:17 Temperature 36.6 C 04/13/25 18:17 Pulse Rate 94 04/13/25 18:17 Respiratory Rate 16 04/13/25 18:17 Blood Pressure 129/69 04/13/25 18:17 Pulse Oximetry 100 04/13/25 18:17 Oxygen Delivery Room Air 04/13/25 18:17 Discharge Plan Discharge Clinical Impression: Otitis media Patient Disposition: Home Condition: Stable Instructions: Antibiotic Form, Ear Infection (AC) Patient Language: Khmer Prescriptions: New amoxicillin-pot clavulanate 875-125 mg tablet 1 tablet PO Q12H Qty: 20 0RF No Action rizatriptan 10 mg tablet duloxetine 60 mg capsule,delayed release(DR/EC) PO acetazolamide 500 mg capsule, extended release 500 mg PO DAILY Rx Instructions: per psychatist Follow-up/Referrals: Magdalena Mccabe DO [Physician] - Time of Disposition: 18:25
== END 2025-04-13 18:30 | disposition home or self-care (01) ==
PROVIDERS: Emergency Provider Nurse Practitioner
DX: H66.91 Otitis media, unspecified, right ear (principal); E78.2 Mixed hyperlipidemia; G93.5 Compression of brain
CPT/HCPCS: 99213; G0463